=== PATIENT | male | born 1935 | race Caucasian/White ===

== ENCOUNTER 2021-08-15 23:04 | Inpatient (IN) ==
[2021-08-15] MEDS ORDERED: 0.9 % Sodium Chloride 1,000 ML IVC ONE (23:08)
[2021-08-16 00:02] LABS: Basophils % 0.4 %; Eosinophils # 0.3 K/mcL (0.0-0.6); Eosinophils % 2.7 %; Hematocrit 44.2 % (37.5-50.1); Hemoglobin 14.3 g/dL (12.9-16.9); Immature Granulocytes % 0.4 % (0-4); Lymphocytes # 0.6 K/mcL (0.6-4.6); Lymphocytes % 6.2 %; Mean Corpuscular HGB Conc 32.4 g/dL (31.6-35.5); Mean Corpuscular Hemoglobin 29.2 pg (28.0-33.3); Mean Corpuscular Volume 90.2 fL (83.0-100.0); Monocytes # 0.9 K/mcL (0.0-1.3); Monocytes % 8.8 %; Neutrophils # 8.1 K/mcL (1.6-8.9); Platelet Count 356 K/mcL (140-400); Red Cell Distribution Width 13.4 % (11.5-14.5); Segmented Neutrophils % 81.5 %
[2021-08-16 00:09] LABS: INR 1.2
[2021-08-16 00:12] LABS: Activated Partial Thrombo Time 28.3 Seconds (26.0-36.0)
[2021-08-16] MEDS ORDERED: cefTRIAXone 1,000 MG in Water for inj. (sterile) 10 ML IVP ONE (00:26)
[2021-08-16 00:38] LABS: Influenza A PCR Negative (Negative); Influenza B PCR Negative (Negative); Resp. Syncytial Virus PCR Negative (Negative)
[2021-08-16 00:42] LABS: SARS-CoV-2 by PCR (In House) Positive (Negative)
[2021-08-16 00:55] LABS: Alanine Aminotransferase 24 Units/L (7-52); Albumin 3.8 g/dL (3.5-5.7); Albumin/Globulin Ratio 1.6 (1.1-2.2); Alkaline Phosphatase 90 Units/L (34-104); Aspartate Amino Transferase 32 Units/L (13-39); BUN/Creatinine Ratio 29 (6-26); Bilirubin,Direct 0.2 mg/dL (0.0-0.2); Bilirubin,Indirect 0.5 mg/dL (0.0-1.0); Bilirubin,Total 0.7 mg/dL (0.3-1.0); Blood Urea Nitrogen 24 mg/dL (8-23); Calcium 8.7 mg/dL (8.6-10.3); Carbon Dioxide 27 mEq/L (23-29); Chloride 104 mEq/L (98-107); Ethanol < 10 mg/dL (Less than 10); Globulin 2.4 g/dL (2.4-3.5); Glucose 104 mg/dL (70-105); Osmolality,Calculated 288 (280-300); Potassium 3.5 mEq/L (3.5-5.1); Sodium 137 mEq/L (136-145); Total Protein 6.2 g/dL (6.4-8.9); Troponin I 0.03 ng/mL (< 0.04); eGFR For African Americans > 60 (> 60); eGFR For Non-African Americans > 60 (> 60)
[2021-08-16 01:06] LABS: Amphetamine Screen,Urine Negative ng/mL (Cutoff=1000); Barbiturate Screen,Urine Negative ng/mL (Cutoff=200); Benzodiazepines Screen,Urine Negative ng/mL (Cutoff=200); Cannabinoid Screen,Urine Negative ng/mL (Cutoff = 50); Cocaine Screen,Urine Negative ng/mL (Cutoff= 300); Opiate Screen,Urine Negative ng/mL (Cutoff=300); Phencyclidine Screen,Urine Negative ng/mL (Cutoff=25)
[2021-08-16 01:16] LABS: Bilirubin,Urine Negative (Negative); Blood,Urine Large (Negative); Clarity,Urine Cloudy (Clear); Color,Urine Amber (Yellow); Glucose,Urine (UA) Normal (Normal); Ketones,Urine Negative (Negative); Leukocyte Esterase,Urine Negative (Negative); Nitrite,Urine Negative (Negative); PH,Urine 6.5 pH Units (5.0-8.0); Protein,Urine >=300 mg/dL (Neg-Trace); Specific Gravity,Urine >= 1.030 (1.010-1.025)
[2021-08-16 01:20] LABS: RBC,Urine TNTC per hpf (0-3)
[2021-08-16] MEDS ORDERED: Naloxone 0.4 MG/ML INJ IVP PRN (02:07)
[2021-08-16] MEDS ORDERED: Ondansetron 4 MG/2 ML VIAL IVP PRN (02:07)
[2021-08-16 06:53] LABS: Basophils # 0.1 K/mcL (0.0-0.2); Basophils % 0.6 %; Eosinophils # 0.3 K/mcL (0.0-0.6); Eosinophils % 3.2 %; Hematocrit 41.1 % (37.5-50.1); Hemoglobin 13.2 g/dL (12.9-16.9); Immature Granulocytes % 0.4 % (0-4); Immature Platelets 5.4 % (1.1-6.1); Lymphocytes # 0.6 K/mcL (0.6-4.6); Lymphocytes % 6.5 %; Mean Corpuscular HGB Conc 32.1 g/dL (31.6-35.5); Mean Corpuscular Hemoglobin 28.8 pg (28.0-33.3); Mean Corpuscular Volume 89.7 fL (83.0-100.0); Mean Platelet Volume 10.9 fL (9.4-12.4); Monocytes # 0.8 K/mcL (0.0-1.3); Monocytes % 9.4 %; Neutrophils # 6.8 K/mcL (1.6-8.9); Platelet Count 291 K/mcL (140-400); Red Blood Count 4.58 M/mcL (4.19-5.50); Red Cell Distribution Width 13.3 % (11.5-14.5); Segmented Neutrophils % 79.9 %; White Blood Count 8.5 K/mcL (4.3-11.1)
[2021-08-16 07:59] LABS: BUN/Creatinine Ratio 30 (6-26); Blood Urea Nitrogen 21 mg/dL (8-23); Calcium 8.2 mg/dL (8.6-10.3); Carbon Dioxide 25 mEq/L (23-29); Chloride 105 mEq/L (98-107); Glucose 92 mg/dL (70-105); Magnesium 1.6 mg/dL (1.6-2.6); Osmolality,Calculated 289 (280-300); Potassium 3.7 mEq/L (3.5-5.1); Sodium 138 mEq/L (136-145); Thyroid Stimulating Hormone 4.229 mcIU/mL (0.340-5.600); eGFR For African Americans > 60 (> 60); eGFR For Non-African Americans > 60 (> 60)
[2021-08-16] MEDS ORDERED: DIMENHYDRINATE 25 MG PO PRN (08:45)
[2021-08-16] MEDS ORDERED: BROMELAINS PO SCH (09:00)
[2021-08-16] MEDS: Lisinopril-HCTZ 20-12.5mg TABLET PO SCH (09:22)
[2021-08-16] MEDS: Aspirin 81 MG TAB.CHEW PO SCH (09:22)
[2021-08-16] MEDS: amLODIPine 5 MG TABLET PO SCH (09:22)
[2021-08-16] MEDS: cefTRIAXone 1,000 MG in Water for inj. (sterile) 10 ML IVP SCH (09:34)
[2021-08-16 09:43] LABS: Creatinine,Urine 135 mg/dL; Protein/Creatinine Ratio,Urine 3.97 mg/mg (0.00-0.20)
[2021-08-16] MEDS: Acetaminophen 325 MG TABLET PO PRN (14:36)
[2021-08-17] MEDS: cefTRIAXone 1,000 MG in Water for inj. (sterile) 10 ML IVP SCH (09:10)
[2021-08-17] MEDS: amLODIPine 5 MG TABLET PO SCH (09:10)
[2021-08-17] MEDS: Lisinopril-HCTZ 20-12.5mg TABLET PO SCH (09:11)
[2021-08-17] MEDS: Aspirin 81 MG TAB.CHEW PO SCH (09:11)
[2021-08-17] MEDS ORDERED: dimenhyDRINATE 50 MG TABLET PO PRN (16:15)
[2021-08-18 02:53] LABS: Basophils % 0.6 %; Eosinophils % 0.3 %; Hematocrit 41.4 % (37.5-50.1); Hemoglobin 13.4 g/dL (12.9-16.9); Immature Granulocytes % 0.5 % (0-4); Lymphocytes # 0.7 K/mcL (0.6-4.6); Lymphocytes % 11.7 %; Mean Corpuscular HGB Conc 32.4 g/dL (31.6-35.5); Mean Corpuscular Hemoglobin 28.8 pg (28.0-33.3); Mean Platelet Volume 9.8 fL (9.4-12.4); Monocytes # 1.1 K/mcL (0.0-1.3); Monocytes % 18.2 %; Platelet Count 314 K/mcL (140-400); Red Blood Count 4.65 M/mcL (4.19-5.50); Red Cell Distribution Width 13.2 % (11.5-14.5); Segmented Neutrophils % 68.7 %; White Blood Count 6.2 K/mcL (4.3-11.1)
[2021-08-18 02:59] LABS: Neutrophils # 4.3 K/mcL (1.6-8.9)
[2021-08-18 03:15] LABS: BUN/Creatinine Ratio 25 (6-26); Blood Urea Nitrogen 19 mg/dL (8-23); Calcium 8.2 mg/dL (8.6-10.3); Carbon Dioxide 26 mEq/L (23-29); Chloride 104 mEq/L (98-107); Glucose 92 mg/dL (70-105); Osmolality,Calculated 280 (280-300); Potassium 3.3 mEq/L (3.5-5.1); Sodium 134 mEq/L (136-145); eGFR For African Americans > 60 (> 60); eGFR For Non-African Americans > 60 (> 60)
[2021-08-18 03:30] LABS: Platelet Estimate Normal (Normal)
[2021-08-18] MEDS: cefTRIAXone 1,000 MG in Water for inj. (sterile) 10 ML IVP SCH (09:39)
[2021-08-18] MEDS: amLODIPine 5 MG TABLET PO SCH (09:39)
[2021-08-18] MEDS: Aspirin 81 MG TAB.CHEW PO SCH (09:39)
[2021-08-18] MEDS: Lisinopril-HCTZ 20-12.5mg TABLET PO SCH (09:39)
[2021-08-19] MEDS: Acetaminophen 325 MG TABLET PO PRN (03:53)
[2021-08-19 08:20] LABS: Basophils % 0.4 %; Eosinophils % 0.3 %; Hematocrit 42.6 % (37.5-50.1); Hemoglobin 13.7 g/dL (12.9-16.9); Immature Granulocytes % 0.4 % (0-4); Lymphocytes # 0.9 K/mcL (0.6-4.6); Lymphocytes % 13.2 %; Mean Corpuscular HGB Conc 32.2 g/dL (31.6-35.5); Mean Corpuscular Hemoglobin 28.7 pg (28.0-33.3); Mean Corpuscular Volume 89.1 fL (83.0-100.0); Mean Platelet Volume 9.6 fL (9.4-12.4); Monocytes # 1.1 K/mcL (0.0-1.3); Monocytes % 14.9 %; Platelet Count 277 K/mcL (140-400); Red Blood Count 4.78 M/mcL (4.19-5.50); Red Cell Distribution Width 13.1 % (11.5-14.5); Segmented Neutrophils % 70.8 %; White Blood Count 7.1 K/mcL (4.3-11.1)
[2021-08-19 08:39] LABS: BUN/Creatinine Ratio 28 (6-26); Blood Urea Nitrogen 25 mg/dL (8-23); Calcium 8.3 mg/dL (8.6-10.3); Carbon Dioxide 31 mEq/L (23-29); Chloride 102 mEq/L (98-107); Glucose 94 mg/dL (70-105); Osmolality,Calculated 292 (280-300); Potassium 3.2 mEq/L (3.5-5.1); Sodium 139 mEq/L (136-145); eGFR For African Americans > 60 (> 60); eGFR For Non-African Americans > 60 (> 60)
[2021-08-19] MEDS: Lisinopril-HCTZ 20-12.5mg TABLET PO SCH (09:59)
[2021-08-19] MEDS: cefTRIAXone 1,000 MG in Water for inj. (sterile) 10 ML IVP SCH (09:59)
[2021-08-19] MEDS: amLODIPine 5 MG TABLET PO SCH (09:59)
[2021-08-19] MEDS: Aspirin 81 MG TAB.CHEW PO SCH (09:59)
[2021-08-20 01:51] LABS: BUN/Creatinine Ratio 37 (6-26); Blood Urea Nitrogen 27 mg/dL (8-23); Calcium 8.4 mg/dL (8.6-10.3); Carbon Dioxide 27 mEq/L (23-29); Chloride 105 mEq/L (98-107); Glucose 106 mg/dL (70-105); Osmolality,Calculated 288 (280-300); Potassium 3.2 mEq/L (3.5-5.1); Sodium 136 mEq/L (136-145); eGFR For African Americans > 60 (> 60); eGFR For Non-African Americans > 60 (> 60)
[2021-08-20 02:22] LABS: Basophils % 0.5 %; Eosinophils # 0.1 K/mcL (0.0-0.6); Eosinophils % 0.6 %; Hematocrit 45.4 % (37.5-50.1); Hemoglobin 14.2 g/dL (12.9-16.9); Immature Granulocytes % 0.2 % (0-4); Lymphocytes # 0.7 K/mcL (0.6-4.6); Lymphocytes % 8.3 %; Mean Corpuscular HGB Conc 31.3 g/dL (31.6-35.5); Mean Corpuscular Hemoglobin 28.2 pg (28.0-33.3); Mean Corpuscular Volume 90.1 fL (83.0-100.0); Mean Platelet Volume 9.7 fL (9.4-12.4); Monocytes % 11.7 %; Neutrophils # 6.4 K/mcL (1.6-8.9); Platelet Count 297 K/mcL (140-400); Red Blood Count 5.04 M/mcL (4.19-5.50); Red Cell Distribution Width 13.1 % (11.5-14.5); Segmented Neutrophils % 78.7 %; White Blood Count 8.2 K/mcL (4.3-11.1)
[2021-08-20] MEDS: Aspirin 81 MG TAB.CHEW PO SCH (07:58)
[2021-08-20] MEDS: amLODIPine 5 MG TABLET PO SCH (07:58)
[2021-08-20] MEDS: Lisinopril-HCTZ 20-12.5mg TABLET PO SCH (07:58)
[2021-08-20] MEDS: cefTRIAXone 1,000 MG in Water for inj. (sterile) 10 ML IVP SCH (07:58)
[2021-08-21] MEDS: amLODIPine 5 MG TABLET PO SCH (09:15)
[2021-08-21] MEDS: Lisinopril-HCTZ 20-12.5mg TABLET PO SCH (09:15)
[2021-08-21] MEDS: Aspirin 81 MG TAB.CHEW PO SCH (09:16)
[2021-08-21] MEDS: cefTRIAXone 1,000 MG in Water for inj. (sterile) 10 ML IVP SCH (09:16)
[2021-08-21] MEDS: Acetaminophen 325 MG TABLET PO PRN (19:45)
[2021-08-22] MEDS: cefTRIAXone 1,000 MG in Water for inj. (sterile) 10 ML IVP SCH (09:48)
[2021-08-22] MEDS: Lisinopril-HCTZ 20-12.5mg TABLET PO SCH (09:49)
[2021-08-22] MEDS: amLODIPine 5 MG TABLET PO SCH (09:49)
[2021-08-22] MEDS: Aspirin 81 MG TAB.CHEW PO SCH (09:49)
[2021-08-23 07:02] VITALS: O2SAT 94
[2021-08-23] MEDS: amLODIPine 5 MG TABLET PO SCH (10:11)
[2021-08-23] MEDS: Aspirin 81 MG TAB.CHEW PO SCH (10:11)
[2021-08-23] MEDS: Lisinopril-HCTZ 20-12.5mg TABLET PO SCH (10:11)
[2021-08-23] MEDS: cefTRIAXone 1,000 MG in Water for inj. (sterile) 10 ML IVP SCH (10:16)
[2021-08-23 10:23] VITALS: BP 147/75; PULSE 86; TEMP 98.6
== END 2021-08-23 20:00 | disposition other institution (70) | DRG 725 ==
LOC: 3BNU 23:04 → EMEROOARM 23:04 → SUATTDRO 08-16 01:44 → 3BNU 08-16 02:42
PROVIDERS: ADMIT Internal Medicine; ATTEND Internal Medicine

== ENCOUNTER 2021-09-16 17:55 | Inpatient (IN) ==
[2021-09-17] MEDS ORDERED: *HR* HYDROcodone/Acet 5/325 mg TABLET PO PRN ×2 (00:23→17:34)
[2021-09-17] MEDS ORDERED: Naloxone 0.4 MG/ML INJ IVP PRN ×2 (00:23→17:34)
[2021-09-17] MEDS ORDERED: Melatonin 3 MG TABLET PO PRN ×2 (00:23→17:34)
[2021-09-17] MEDS ORDERED: Acetaminophen 325 MG TABLET PO PRN ×2 (00:23→17:34)
[2021-09-17] MEDS ORDERED: Dextrose Gel 15 GM/37.5 ML TUBE PO PRN ×4 (01:25→17:34)
[2021-09-17] MEDS ORDERED: D5% in Water 1,000 ML IVC PRN ×2 (01:25→17:34)
[2021-09-17] MEDS ORDERED: *HR* Dextrose 50 % in Water (Syg) 50 ML SYRINGE IVP PRN ×2 (01:25→17:34)
[2021-09-17 01:57] LABS: Hematocrit 43.1 % (37.5-50.1); Hemoglobin 14.1 g/dL (12.9-16.9); Mean Corpuscular HGB Conc 32.7 g/dL (31.6-35.5); Mean Corpuscular Hemoglobin 28.6 pg (28.0-33.3); Mean Corpuscular Volume 87.4 fL (83.0-100.0); Mean Platelet Volume 10.9 fL (9.4-12.4); Platelet Count 273 K/mcL (140-400); Red Blood Count 4.93 M/mcL (4.19-5.50); Red Cell Distribution Width 14.2 % (11.5-14.5); White Blood Count 11.4 K/mcL (4.3-11.1)
[2021-09-17 02:06] LABS: INR 1.4; Prothrombin Time 15.4 Seconds (9.4-12.1)
[2021-09-17 02:13] LABS: BUN/Creatinine Ratio 28 (6-26); Blood Urea Nitrogen 21 mg/dL (8-23); Calcium 8.8 mg/dL (8.6-10.3); Carbon Dioxide 22 mEq/L (23-29); Chloride 111 mEq/L (98-107); Glucose 93 mg/dL (70-105); Magnesium 1.7 mg/dL (1.6-2.6); Osmolality,Calculated 297 (280-300); Phosphorous 2.3 mg/dL (2.7-4.5); Potassium 3.4 mEq/L (3.5-5.1); Sodium 142 mEq/L (136-145); eGFR For African Americans > 60 (> 60); eGFR For Non-African Americans > 60 (> 60)
[2021-09-17] MEDS ORDERED: Potassium Phosphate 44 MEQ in 0.9 % Sodium Chloride 250 ML IVPB ONE (03:06)
[2021-09-17] MEDS ORDERED: Saliva Stimulant 44.3ml BOTTLE PO PRN ×2 (04:20→17:34)
[2021-09-17] MEDS: Lactobacillus 1 EACH CAP.SPRINK PO SCH ×3 (07:46→23:29)
[2021-09-17] MEDS ORDERED: Ampicillin 2,000 MG in 0.9 % Sodium Chloride Mini Bag 100 ML IVPB SCH ×3 (12:00→20:00)
[2021-09-17] MEDS ORDERED: Lidocaine HCL 4 ML Topical Solution (Laryng-O-Jet Kit Sterile Pak) TP ONE (14:09)
[2021-09-17] MEDS ORDERED: Ondansetron 4 MG/2 ML VIAL ONE (14:09)
[2021-09-17] MEDS ORDERED: Lidocaine -MPF 2% 5 ML VIAL ONE (14:09)
[2021-09-17] MEDS ORDERED: *HR* Succinylcholine 200 MG/10 ML VIAL IVP ONE (14:10)
[2021-09-17] MEDS ORDERED: *HR* FentaNYL (PF) 100 MCG/2 ML VIAL ONE ×2 (14:12→16:20)
[2021-09-17] MEDS ORDERED: *HR* Propofol 200 MG/20 ML VIAL IVP ONE (14:13)
[2021-09-17] MEDS ORDERED: *HR* FentaNYL (PF) 100 MCG/2 ML VIAL IVP PRN (15:25)
[2021-09-17] MEDS ORDERED: Ondansetron 4 MG/2 ML VIAL IVP PRN (15:25)
[2021-09-17] MEDS ORDERED: *HR* Vasopressin 20 UNIT/ML VIAL ONE (15:34)
[2021-09-17] MEDS ORDERED: *HR* Belladonna Alkaloids/Opium 30 MG RECTAL SUPPOSITORY RC ONE (15:44)
[2021-09-17] MEDS ORDERED: *HR* Labetalol 20 MG/4 ML SYRINGE IVP PRN (16:48)
[2021-09-17] MEDS ORDERED: Hyoscyamine SL 0.125 MG TAB.SUBL SL PRN (17:34)
[2021-09-17] MEDS ORDERED: *HR* Belladonna Alkaloids/Opium 30 MG RECTAL SUPPOSITORY RC PRN (17:34)
[2021-09-18 02:43] LABS: Basophils % 0.3 %; Eosinophils % 0.1 %; Hematocrit 41.7 % (37.5-50.1); Hemoglobin 13.2 g/dL (12.9-16.9); Immature Granulocytes % 0.4 % (0-4); Lymphocytes # 0.6 K/mcL (0.6-4.6); Lymphocytes % 5.5 %; Mean Corpuscular HGB Conc 31.7 g/dL (31.6-35.5); Mean Corpuscular Hemoglobin 28.4 pg (28.0-33.3); Mean Corpuscular Volume 89.7 fL (83.0-100.0); Mean Platelet Volume 10.6 fL (9.4-12.4); Monocytes # 0.6 K/mcL (0.0-1.3); Monocytes % 5.8 %; Neutrophils # 8.7 K/mcL (1.6-8.9); Platelet Count 256 K/mcL (140-400); Red Blood Count 4.65 M/mcL (4.19-5.50); Red Cell Distribution Width 14.4 % (11.5-14.5); Segmented Neutrophils % 87.9 %; White Blood Count 9.9 K/mcL (4.3-11.1)
[2021-09-18 03:01] LABS: BUN/Creatinine Ratio 20 (6-26); Blood Urea Nitrogen 18 mg/dL (8-23); Calcium 8.4 mg/dL (8.6-10.3); Carbon Dioxide 26 mEq/L (23-29); Chloride 112 mEq/L (98-107); Glucose 99 mg/dL (70-105); Osmolality,Calculated 300 (280-300); Potassium 4.7 mEq/L (3.5-5.1); Sodium 144 mEq/L (136-145); eGFR For African Americans > 60 (> 60); eGFR For Non-African Americans > 60 (> 60)
[2021-09-18] MEDS: Ampicillin 2,000 MG in 0.9 % Sodium Chloride Mini Bag 100 ML IVPB SCH ×3 (06:14→17:34)
[2021-09-18] MEDS: Lactobacillus 1 EACH CAP.SPRINK PO SCH ×3 (09:54→19:59)
[2021-09-19] MEDS: Ampicillin 2,000 MG in 0.9 % Sodium Chloride Mini Bag 100 ML IVPB SCH ×5 (00:44→23:52)
[2021-09-19] MEDS: Aspirin 81 MG TAB.CHEW PO SCH (08:39)
[2021-09-19] MEDS: Lactobacillus 1 EACH CAP.SPRINK PO SCH ×2 (08:40→22:04)
[2021-09-19] MEDS: amLODIPine 5 MG TABLET PO SCH (08:40)
[2021-09-20] MEDS: Ampicillin 2,000 MG in 0.9 % Sodium Chloride Mini Bag 100 ML IVPB SCH (05:22)
[2021-09-20 06:37] LABS: Basophils % 0.4 %; Eosinophils # 0.4 K/mcL (0.0-0.6); Eosinophils % 6.2 %; Hematocrit 33.5 % (37.5-50.1); Immature Granulocytes % 0.3 % (0-4); Lymphocytes # 0.6 K/mcL (0.6-4.6); Lymphocytes % 8.9 %; Mean Corpuscular HGB Conc 33.1 g/dL (31.6-35.5); Mean Corpuscular Hemoglobin 29.4 pg (28.0-33.3); Mean Corpuscular Volume 88.9 fL (83.0-100.0); Mean Platelet Volume 10.8 fL (9.4-12.4); Monocytes # 0.6 K/mcL (0.0-1.3); Monocytes % 8.5 %; Neutrophils # 5.3 K/mcL (1.6-8.9); Platelet Count 219 K/mcL (140-400); Red Blood Count 3.77 M/mcL (4.19-5.50); Red Cell Distribution Width 14.1 % (11.5-14.5); Segmented Neutrophils % 75.7 %
[2021-09-20 06:46] LABS: Hemoglobin 11.1 g/dL (12.9-16.9)
[2021-09-20 06:56] LABS: BUN/Creatinine Ratio 24 (6-26); Blood Urea Nitrogen 16 mg/dL (8-23); Calcium 7.9 mg/dL (8.6-10.3); Carbon Dioxide 28 mEq/L (23-29); Chloride 111 mEq/L (98-107); Glucose 93 mg/dL (70-105); Osmolality,Calculated 297 (280-300); Potassium 3.2 mEq/L (3.5-5.1); Sodium 143 mEq/L (136-145); eGFR For African Americans > 60 (> 60); eGFR For Non-African Americans > 60 (> 60)
[2021-09-20] MEDS ORDERED: Potassium Chloride Elixir 20 MEQ/15 ML UDC PO ONE (07:25)
[2021-09-20] MEDS: amLODIPine 5 MG TABLET PO SCH (09:27)
[2021-09-20] MEDS: Aspirin 81 MG TAB.CHEW PO SCH (09:28)
[2021-09-20] MEDS: Lactobacillus 1 EACH CAP.SPRINK PO SCH (09:28)
[2021-09-20 16:06] VITALS: BP 112/74; PULSE 82; TEMP 98; O2SAT 96
[2021-09-20 17:50] LABS: Influenza A PCR Negative (Negative); Influenza B PCR Negative (Negative); Resp. Syncytial Virus PCR Negative (Negative)
[2021-09-20 18:11] LABS: SARS-CoV-2 by PCR (In House) Negative (Negative)
== END 2021-09-20 20:39 | DRG 666 ==
LOC: 3ANU → SUATTDRO 23:18
PROVIDERS: ADMIT Internal Medicine; ATTEND Internal Medicine
PROC: UROTURP (2021-09-17 18:40)